=== PATIENT | female | born 1985 | race Caucasian/White ===

== ENCOUNTER 2016-10-19 02:27 | Emergency (ER) | payer OTHER ==
[~2016-10-19] VITALS: Ht 165.1 cm; Wt 67.2 kg
[~2016-10-19 02:27] MED LIST: FLEXERIL5 MG PO; MOTRIN600 MG PO; RECLIPSEN1 EACH PO
[2016-10-19 04:15] VITALS: BP 95/62
== END 2016-10-19 04:16 | disposition home or self-care (01) ==
LOC: EME 02:27
DX: S39.012A Strain of muscle, fascia and tendon of lower back, initial encounter (principal); S80.01XA Contusion of right knee, initial encounter; W01.0XXA Fall on same level from slipping, tripping and stumbling without subsequent striking against object, initial encounter; Y99.0 Civilian activity done for income or pay
CPT/HCPCS: 72100; 73564; 99281; 99284